=== PATIENT | female | born 1970 | race Caucasian/White ===

== ENCOUNTER 2023-06-04 07:23 | Emergency (ER) | payer OTHER ==
[2023-06-04 07:40] VITALS: BP 109/65; PULSE 78; RESP 18; TEMP 98.1; BMI 26.4
[2023-06-04] MEDS ORDERED: ERYTHROMYCIN 0.5% OPHTHALMIC OINTMENT 3.5 GM TUBE ONE (07:54)
[2023-06-04] MEDS ORDERED: ERYTHROMYCIN 0.5% OPHTHALMIC OINTMENT 3.5 GM TUBE OS ONE (08:09)
[2023-06-04] MEDS ORDERED: ERYTHROMYCIN 0.5% OPHTHALMIC OINTMENT 3.5 GM TUBE OS SCH (10:00)
== END 2023-06-04 08:07 | disposition home or self-care (01) ==
LOC: JERFT 07:23 → JER 07:23 → JERFT 08:07
DX: H02.844 Edema of left upper eyelid (principal); L53.9 Erythematous condition, unspecified; H01.004 Unspecified blepharitis left upper eyelid
CPT/HCPCS: 99283-25

== ENCOUNTER 2023-11-12 07:27 | Observation (INO) | payer OTHER ==
[2023-11-12 07:50] VITALS: BMI 26.2
[2023-11-12] MEDS ORDERED: ALBUTEROL SO4 2.5/IPRATROPIUM 0.5 INH SOL 3 ML VIAL.NEB. NEB ONE (09:15)
[2023-11-12] MEDS: ALBUTEROL SO4 2.5/IPRATROPIUM 0.5 INH SOL 3 ML VIAL.NEB. NEB ONE (09:15)
[2023-11-12] MEDS ORDERED: MECLIZINE HCL 25 MG TABLET (FP) ONE (09:15)
[2023-11-12] MEDS: MECLIZINE HCL 25 MG TABLET (FP) PO ONE (09:15)
[2023-11-12] MEDS ORDERED: ACETAMINOPHEN INJECTION 100 ML IVPB ONE (10:36)
[2023-11-12] MEDS: ACETAMINOPHEN 1000 MG/100 ML BAG IVPB ONE (10:45)
[2023-11-12] MEDS: SODIUM CHLORIDE 1,000 ML IV STA (10:45)
[2023-11-12 11:06] LABS: BASO % 0.4 % (0-2.0); EOS % 0.3 % (0-4.5); HEMATOCRIT 33.1 % (32.4-45.2); HEMOGLOBIN 11.1 GM/dL (10.7-15.3); LYMPH % 17.5 % (8-40); MCH 28.9 pg (25.7-33.7); MCHC 33.6 g/dl (32.0-36.0); MEAN PLT VOLUME 6.8 fl (7.5-11.1); MONO % 3.2 % (3.8-10.2); NEUT % 78.6 % (42.8-82.8); PLATELET COUNT 347 10^3/uL (134-434); RBC 3.85 M/mm3 (3.60-5.2); RDW 15.8 % (11.6-15.6); WHITE BLOOD COUNT 8.8 K/mm3 (4.0-10.0)
[2023-11-12 11:28] LABS: POTASSIUM 3.6 mmol/L (3.5-5.1)
[2023-11-12 11:32] LABS: CALCIUM 8.9 mg/dL (8.5-10.1)
[2023-11-12 11:33] LABS: ALBUMIN 3.2 g/dl (3.4-5.0); BLOOD UREA NITROGEN 8.9 mg/dL (7-18)
[2023-11-12 11:36] LABS: CREATININE 0.7 mg/dL (0.55-1.3)
[2023-11-12 11:38] LABS: BILIRUBIN,TOTAL 0.3 mg/dL (0.2-1); TOT PROT 7.4 g/dl (6.4-8.2)
[2023-11-12] MEDS ORDERED: guaiFENesin/D-METHORPHAN HB 10 ML UNIT-DOSE CUPS PO PRN (14:27)
[2023-11-12] MEDS ORDERED: ALBUTEROL SO4 HFA INHALER IH PRN (14:49)
[2023-11-12] MEDS: CEFTRIAXONE 1 GM in DEXTROSE 5%-WATER - 50 ML IVPB SCH (16:23)
[2023-11-12] MEDS: methylPREDNISolone NA SUCC 40 MG/1 ML VIAL IVPUSH SCH (16:23)
[2023-11-12] MEDS: AZITHROMYCIN 250 MG TABLET PO SCH (16:23)
[2023-11-12] MEDS: ALBUTEROL SO4 2.5/IPRATROPIUM 0.5 INH SOL 3 ML VIAL.NEB. NEB SCH (16:44)
[2023-11-12] MEDS: guaiFENesin/D-METHORPHAN TAB.ER.12H PO SCH (23:13)
[2023-11-13 08:26] LABS: BASO % 0.1 % (0-2.0); EOS % 0.1 % (0-4.5); HEMATOCRIT 29.4 % (32.4-45.2); HEMOGLOBIN 9.8 GM/dL (10.7-15.3); LYMPH % 11.6 % (8-40); MCHC 33.3 g/dl (32.0-36.0); MEAN CELL VOLUME 87.1 fl (80-96); MONO % 5.4 % (3.8-10.2); NEUT % 82.8 % (42.8-82.8); PLATELET COUNT 370 10^3/uL (134-434); RBC 3.38 M/mm3 (3.60-5.2); RDW 15.3 % (11.6-15.6); WHITE BLOOD COUNT 6.5 K/mm3 (4.0-10.0)
[2023-11-13] MEDS: guaiFENesin/D-METHORPHAN HB 10 ML UNIT-DOSE CUPS PO SCH (08:27)
[2023-11-13 08:55] LABS: POTASSIUM 4.3 mmol/L (3.5-5.1)
[2023-11-13 08:59] LABS: ALBUMIN 2.9 g/dl (3.4-5.0); BLOOD UREA NITROGEN 10.3 mg/dL (7-18); MAGNESIUM 2.3 mg/dL (1.8-2.4)
[2023-11-13 09:02] LABS: CREATININE 0.7 mg/dL (0.55-1.3); PHOSPHOROUS 3.3 mg/dL (2.5-4.9)
[2023-11-13 09:04] LABS: BILIRUBIN,TOTAL 0.3 mg/dL (0.2-1); TOT PROT 6.9 g/dl (6.4-8.2)
[2023-11-13 14:45] VITALS: RESP 18
[2023-11-13] MEDS: ACETAMINOPHEN 1000 MG/100 ML BAG IVPB PRN (21:36)
[2023-11-13 23:54] VITALS: TEMP 98.2
[2023-11-14] MEDS: predniSONE 20 MG TABLET (UD) PO SCH (09:55)
[2023-11-14 10:58] VITALS: BP 107/65; PULSE 85
== END 2023-11-14 13:02 | disposition home or self-care (01) ==
LOC: JERFT 07:27 → JER 07:27 → JERBED 13:05 → J5S 15:31
PROVIDERS: ATTEND Internal Medicine
PROC: 3E0F7GC Introduction of Other Therapeutic Substance into Respiratory Tract, Via Natural or Artificial Opening (ICD-10-PCS; principal; 2023-11-12)
PROC: 3E033NZ Introduction of Analgesics, Hypnotics, Sedatives into Peripheral Vein, Percutaneous Approach (ICD-10-PCS; 2023-11-12)
PROC: 3E03329 Introduction of Other Anti-infective into Peripheral Vein, Percutaneous Approach (ICD-10-PCS; 2023-11-12)
PROC: 3E0337Z Introduction of Electrolytic and Water Balance Substance into Peripheral Vein, Percutaneous Approach (ICD-10-PCS; 2023-11-12)
DX: J45.901 Unspecified asthma with (acute) exacerbation (principal); J18.9 Pneumonia, unspecified organism; R50.9 Fever, unspecified; Z29.89 Encounter for other specified prophylactic measures
CPT/HCPCS: 0241U-QW; 36415; 71046-TC-FY; 71250-TC; 80053; 83735; 84100; 85025; 87070; 87186; 87205; 87899; 93005; 93010; 94640; 96361; 96365; 96367; 96375; 96376; 99285-25; G0378; J0131

== ENCOUNTER 2024-02-08 20:49 | Emergency (ER) | payer OTHER ==
[2024-02-08 21:07] VITALS: RESP 18; BMI 28.0
[2024-02-08] MEDS ORDERED: ONDANSETRON 4 MG/2 ML VIAL ONE (21:50)
[2024-02-08] MEDS ORDERED: ACETAMINOPHEN INJECTION 100 ML IVPB ONE (21:50)
[2024-02-08 22:04] LABS: BASO % 0.2 % (0-2.0); HEMATOCRIT 35.7 % (32.4-45.2); HEMOGLOBIN 11.7 GM/dL (10.7-15.3); LYMPH % 11.8 % (8-40); MCH 28.5 pg (25.7-33.7); MCHC 32.8 g/dl (32.0-36.0); MEAN CELL VOLUME 86.7 fl (80-96); MEAN PLT VOLUME 7.3 fl (7.5-11.1); MONO % 2.6 % (3.8-10.2); NEUT % 85.4 % (42.8-82.8); PLATELET COUNT 296 10^3/uL (134-434); RBC 4.12 M/mm3 (3.60-5.2); RDW 16.4 % (11.6-15.6)
[2024-02-08 22:11] LABS: PROTHROMBIN TIME (PATIENT) 11.5 SEC (9.7-13.0)
[2024-02-08 22:13] LABS: ACTIVATED PTT 28.4 SECONDS (25.2-36.5)
[2024-02-08 22:23] LABS: POTASSIUM 3.6 mmol/L (3.5-5.1)
[2024-02-08 22:26] LABS: ALBUMIN 4.2 g/dl (3.4-5.0); BLOOD UREA NITROGEN 9.4 mg/dL (7-18); CALCIUM 9.2 mg/dL (8.5-10.1)
[2024-02-08 22:29] LABS: CREATININE 0.8 mg/dL (0.55-1.3); PHOSPHOROUS 1.6 mg/dL (2.5-4.9)
[2024-02-08 22:31] LABS: BILIRUBIN,TOTAL 0.5 mg/dL (0.2-1); TOT PROT 7.7 g/dl (6.4-8.2)
[2024-02-08] MEDS: LACTATED RINGERS SOLUTION 1000 ML INFUS.BAG IV ONE (23:16)
[2024-02-08] MEDS: ACETAMINOPHEN 1000 MG/100 ML BAG IVPB ONE (23:16)
[2024-02-08] MEDS: ONDANSETRON 4 MG/2 ML VIAL IVPUSH ONE (23:16)
[2024-02-08] MEDS ORDERED: MECLIZINE HCL 25 MG TABLET (FP) ONE (23:39)
[2024-02-08] MEDS: MECLIZINE HCL 25 MG TABLET (FP) PO ONE (23:41)
[2024-02-09 00:30] VITALS: BP 116/61; PULSE 63; TEMP 97.9
[2024-02-09] MEDS ORDERED: KETOROLAC TROMETHAMINE 15 MG/ML VIAL ONE (00:33)
[2024-02-09] MEDS: KETOROLAC TROMETHAMINE 15 MG/ML VIAL IVPUSH ONE (00:35)
== END 2024-02-09 00:49 | disposition admitted as inpatient to this hospital (09) ==
LOC: JER 20:49
PROC: 3E033NZ Introduction of Analgesics, Hypnotics, Sedatives into Peripheral Vein, Percutaneous Approach (ICD-10-PCS; principal; 2024-02-08)
PROC: 3E033GC Introduction of Other Therapeutic Substance into Peripheral Vein, Percutaneous Approach (ICD-10-PCS; 2024-02-08)
PROC: 3E0333Z Introduction of Anti-inflammatory into Peripheral Vein, Percutaneous Approach (ICD-10-PCS; 2024-02-09)
DX: R11.2 Nausea with vomiting, unspecified (principal); R42 Dizziness and giddiness; R19.7 Diarrhea, unspecified; R10.84 Generalized abdominal pain
CPT/HCPCS: 36415; 70450-TC; 70496-TC; 71045-TC-FY; 76705-TC; 80053; 83690; 83735; 84100; 84484; 84703; 85025; 85610; 85730; 86850; 86900; 86901; 93005; 93010; 99285-25; J0131; Q9967

== ENCOUNTER 2024-05-03 10:08 | Emergency (ER) | payer OTHER ==
[2024-05-03 10:16] VITALS: BP 107/63; PULSE 92; RESP 18; TEMP 98.2; BMI 26.6
[2024-05-03 11:48] LABS: THROAT:GRP A STREP NOT DETECTED (NOTDETECTED)
== END 2024-05-03 12:14 | disposition home or self-care (01) ==
LOC: JERFT 10:08
DX: R51.9 Headache, unspecified (principal); R05.9 Cough, unspecified; J06.9 Acute upper respiratory infection, unspecified; J02.9 Acute pharyngitis, unspecified; R09.81 Nasal congestion; M79.10 Myalgia, unspecified site; Z20.822 Contact with and (suspected) exposure to COVID-19
CPT/HCPCS: 0241U-QW; 87651; 99283-25